=== PATIENT | male | born 1950 | race Caucasian/White ===

== ENCOUNTER 2022-07-10 10:50 | Inpatient (IN) | payer MEDICARE, SELFPAY ==
[2022-07-10 12:10] LABS: #Monocytes 0.3 10x3/uL (0.0-1.1); #Neutrophils 2.4 10x3/uL (1.5-8.4); %Basophils 0.6 % (0.0-2.0); %Eosinophils 0.6 % (0.0-6.0); %Lymphocytes 12.3 % (18.0-47.0); %Monocytes 9.7 % (0.0-10.0); %Neutrophils 76.2 % (40.0-75.0); Hemoglobin 10.4 g/dL (13.5-17.5); Mean Corpuscular HGB CONC 33.8 g/dL (32.0-36.0); Mean Corpuscular Hemoglobin 30.1 pg (27.0-33.0); Mean Platelet Volume 8.8 fl (7.4-10.4); Platelet Count 195 10x3/uL (150-450); RBC Distribution Width 17.2 % (11.5-14.5); Red Blood Cell (RBC) Count 3.46 10x6/uL (4.32-5.72); White Blood Cell (WBC) Count 3.2 10x3/uL (3.5-10.5)
[2022-07-10 12:24] LABS: ALT (SGPT) 25 U/L (8-55); AST (SGOT) 29 U/L (5-34); Albumin 3.8 g/dL (3.4-4.8); Alkaline Phosphatase 136 U/L (40-110); Anion Gap 14 mmol/L (10-20); BUN (Urea Nitrogen) 10 mg/dL (8.4-25.7); Bilirubin, Total 2.5 mg/dL (0.2-1.2); Calc. Creatinine Clearance 0 mL/min (70-130); Calcium 8.4 mg/dL (7.8-10.44); Carbon Dioxide 27 mmol/L (23-31); Chloride 98 mmol/L (98-107); Estimated GFR 99; Globulin 2.5 g/dL (2.4-3.5); Glucose 107 mg/dL (83-110); Potassium 4.7 mmol/L (3.5-5.1); Protein, Total 6.3 g/dL (5.8-8.1); Sodium 134 mmol/L (136-145)
[2022-07-10] MEDS ORDERED: Iopamidol 300 61% 100 ML VIAL FS ONE (12:35)
[2022-07-10] MEDS ORDERED: Cefepime 2 GM VIAL ONE (14:21)
[2022-07-10 15:50] LABS: Cholesterol 124 mg/dl (< 200 Desired); HDL Cholesterol 41 mg/dL (>60 Neg Risk); LDL Cholesterol, Calculated 64 mg/dL; Magnesium 1.9 mg/dL (1.6-2.6); Phosphorus 3.6 mg/dL (2.3-4.7); Triglycerides 97 mg/dL (Less than 150)
[2022-07-10] MEDS ORDERED: Acetaminophen 325 MG TAB PO PRN (18:35)
[2022-07-10 20:08] LABS: Hemoglobin A1c 3.5 % (4.0-6.0)
[2022-07-10] MEDS: HYDROcodone/Acetaminophen 5/325 mg Tablet PO PRN (20:53)
[2022-07-10] MEDS ORDERED: Vancomycin HCl 1 GM in Sodium Chloride 0.9% 250 ML 250 ML IVPB SCH (21:00)
[2022-07-10] MEDS: Famotidine 20 MG TAB PO SCH (21:19)
[2022-07-10] MEDS: Heparin 5,000 UNITS/ML VIAL SC SCH (22:00)
[2022-07-11] MEDS: HYDROcodone/Acetaminophen 5/325 mg Tablet PO PRN ×6 (00:36→22:36)
[2022-07-11] MEDS: Cefepime 2 GM in Sodium Chloride 0.9% 100 ML IVPB SCH ×2 (03:12→14:41)
[2022-07-11] MEDS: Vancomycin 1.5 GRAM/300 ML BAG 1.5 GM in Premix Bag 1 BAG IVPB SCH ×2 (04:48→16:14)
[2022-07-11 06:08] LABS: #Monocytes 0.3 10x3/uL (0.0-1.1); #Neutrophils 1.8 10x3/uL (1.5-8.4); %Basophils 0.4 % (0.0-2.0); %Eosinophils 1.6 % (0.0-6.0); %Lymphocytes 18.4 % (18.0-47.0); %Monocytes 10.2 % (0.0-10.0); Hemoglobin 9.9 g/dL (13.5-17.5); Mean Corpuscular HGB CONC 33.1 g/dL (32.0-36.0); Mean Corpuscular Hemoglobin 30.4 pg (27.0-33.0); Mean Corpuscular Volume 91.7 fl (81.2-95.1); Mean Platelet Volume 8.7 fl (7.4-10.4); Platelet Count 200 10x3/uL (150-450); RBC Distribution Width 17.2 % (11.5-14.5); Red Blood Cell (RBC) Count 3.26 10x6/uL (4.32-5.72); White Blood Cell (WBC) Count 2.6 10x3/uL (3.5-10.5)
[2022-07-11 06:26] LABS: ALT (SGPT) 20 U/L (8-55); AST (SGOT) 27 U/L (5-34); Albumin 3.3 g/dL (3.4-4.8); Alkaline Phosphatase 122 U/L (40-110); Anion Gap 14 mmol/L (10-20); BUN (Urea Nitrogen) 9 mg/dL (8.4-25.7); Calc. Creatinine Clearance 239 mL/min (70-130); Calcium 8.5 mg/dL (7.8-10.44); Carbon Dioxide 26 mmol/L (23-31); Chloride 100 mmol/L (98-107); Estimated GFR 103; Globulin 2.6 g/dL (2.4-3.5); Glucose 114 mg/dL (83-110); Potassium 4.5 mmol/L (3.5-5.1); Protein, Total 5.9 g/dL (5.8-8.1); Sodium 135 mmol/L (136-145)
[2022-07-11] MEDS: Heparin 5,000 UNITS/ML VIAL SC SCH ×3 (09:36→22:38)
[2022-07-11] MEDS: Losartan 25 MG TAB PO SCH (09:37)
[2022-07-11] MEDS: Famotidine 20 MG TAB PO SCH ×2 (09:38→22:35)
[2022-07-11 14:49] VITALS: BMI 45.3
[2022-07-12] MEDS: Cefepime 2 GM in Sodium Chloride 0.9% 100 ML IVPB SCH (03:08)
[2022-07-12 04:04] LABS: #Monocytes 0.3 10x3/uL (0.0-1.1); #Neutrophils 1.8 10x3/uL (1.5-8.4); %Eosinophils 1.3 % (0.0-6.0); %Lymphocytes 26.2 % (18.0-47.0); %Monocytes 10.3 % (0.0-10.0); %Neutrophils 60.9 % (40.0-75.0); Hemoglobin 10.4 g/dL (13.5-17.5); Mean Corpuscular HGB CONC 33.1 g/dL (32.0-36.0); Mean Corpuscular Hemoglobin 30.1 pg (27.0-33.0); Mean Corpuscular Volume 90.8 fl (81.2-95.1); Mean Platelet Volume 8.5 fl (7.4-10.4); Platelet Count 203 10x3/uL (150-450); RBC Distribution Width 17.5 % (11.5-14.5); Red Blood Cell (RBC) Count 3.46 10x6/uL (4.32-5.72)
[2022-07-12 04:17] LABS: Vancomycin, Trough 10.5 ug/mL
[2022-07-12 04:21] LABS: Anion Gap 14 mmol/L (10-20); BUN (Urea Nitrogen) 10 mg/dL (8.4-25.7); Calc. Creatinine Clearance 228 mL/min (70-130); Calcium 8.9 mg/dL (7.8-10.44); Carbon Dioxide 27 mmol/L (23-31); Cardiac Risk 3.9 (Less than 4.5); Chloride 100 mmol/L (98-107); Cholesterol 130 mg/dl (< 200 Desired); Estimated GFR 101; Glucose 108 mg/dL (83-110); HDL Cholesterol 33 mg/dL (>60 Neg Risk); LDL Cholesterol, Calculated 67 mg/dL; Potassium 4.6 mmol/L (3.5-5.1); Sodium 136 mmol/L (136-145); Triglycerides 150 mg/dL (Less than 150)
[2022-07-12 04:22] LABS: ALT (SGPT) 20 U/L (8-55); AST (SGOT) 24 U/L (5-34); Albumin 3.5 g/dL (3.4-4.8); Alkaline Phosphatase 122 U/L (40-110); Bilirubin, Direct 0.8 mg/dL (0.1-0.3); Bilirubin, Total 1.8 mg/dL (0.2-1.2); Protein, Total 6.4 g/dL (5.8-8.1)
[2022-07-12 04:34] LABS: CRP (Inflammatory) 6.76 mg/dL (= or < 0.5)
[2022-07-12] MEDS ORDERED: VANCOMYCIN 1.75 GM/350 ML BAG 1.75 GM in Premix Bag 1 BAG IVPB SCH (05:00)
[2022-07-12] MEDS: Vancomycin 1.5 GRAM/300 ML BAG 1.5 GM in Premix Bag 1 BAG IVPB SCH (05:51)
[2022-07-12] MEDS: HYDROcodone/Acetaminophen 5/325 mg Tablet PO PRN ×4 (06:52→22:14)
[2022-07-12] MEDS: Famotidine 20 MG TAB PO SCH ×2 (08:20→22:14)
[2022-07-12] MEDS: Losartan 25 MG TAB PO SCH (08:20)
[2022-07-12] MEDS: Heparin 5,000 UNITS/ML VIAL SC SCH ×3 (08:20→22:15)
[2022-07-12] MEDS: CEFAZOLIN 2 GM in Sodium Chloride 0.9% 100 ML IVPB SCH (15:00)
[2022-07-13] MEDS: CEFAZOLIN 2 GM in Sodium Chloride 0.9% 100 ML IVPB SCH ×4 (01:05→23:17)
[2022-07-13] MEDS: HYDROcodone/Acetaminophen 5/325 mg Tablet PO PRN ×5 (02:06→23:18)
[2022-07-13 04:51] LABS: #Monocytes 0.3 10x3/uL (0.0-1.1); %Basophils 0.9 % (0.0-2.0); %Eosinophils 1.2 % (0.0-6.0); %Lymphocytes 26.6 % (18.0-47.0); %Monocytes 10.2 % (0.0-10.0); %Neutrophils 60.8 % (40.0-75.0); Anion Gap 15 mmol/L (10-20); BUN (Urea Nitrogen) 8 mg/dL (8.4-25.7); Calc. Creatinine Clearance 239 mL/min (70-130); Calcium 8.7 mg/dL (7.8-10.44); Carbon Dioxide 26 mmol/L (23-31); Chloride 99 mmol/L (98-107); Estimated GFR 103; Glucose 93 mg/dL (83-110); Hemoglobin 10.6 g/dL (13.5-17.5); Mean Corpuscular HGB CONC 33.4 g/dL (32.0-36.0); Mean Corpuscular Hemoglobin 30.1 pg (27.0-33.0); Mean Corpuscular Volume 90.1 fl (81.2-95.1); Mean Platelet Volume 8.9 fl (7.4-10.4); Platelet Count 208 10x3/uL (150-450); RBC Distribution Width 17.4 % (11.5-14.5); Red Blood Cell (RBC) Count 3.52 10x6/uL (4.32-5.72); Sodium 136 mmol/L (136-145); White Blood Cell (WBC) Count 3.2 10x3/uL (3.5-10.5)
[2022-07-13] MEDS: Heparin 5,000 UNITS/ML VIAL SC SCH ×3 (09:35→20:42)
[2022-07-13] MEDS: Losartan 25 MG TAB PO SCH (09:36)
[2022-07-13] MEDS: Famotidine 20 MG TAB PO SCH ×2 (09:36→20:41)
[2022-07-14 04:16] LABS: #Eosinphils 0.1 10x3/uL (0.0-0.5); #Monocytes 0.2 10x3/uL (0.0-1.1); #Neutrophils 1.4 10x3/uL (1.5-8.4); %Basophils 0.8 % (0.0-2.0); %Eosinophils 2.8 % (0.0-6.0); %Lymphocytes 32.8 % (18.0-47.0); %Monocytes 9.5 % (0.0-10.0); %Neutrophils 53.3 % (40.0-75.0); Hemoglobin 10.1 g/dL (13.5-17.5); Mean Corpuscular HGB CONC 33.7 g/dL (32.0-36.0); Mean Corpuscular Hemoglobin 30.2 pg (27.0-33.0); Mean Corpuscular Volume 89.8 fl (81.2-95.1); Mean Platelet Volume 8.8 fl (7.4-10.4); Platelet Count 215 10x3/uL (150-450); RBC Distribution Width 17.1 % (11.5-14.5); Red Blood Cell (RBC) Count 3.34 10x6/uL (4.32-5.72); White Blood Cell (WBC) Count 2.5 10x3/uL (3.5-10.5)
[2022-07-14 04:24] LABS: Anion Gap 12 mmol/L (10-20); BUN (Urea Nitrogen) 10 mg/dL (8.4-25.7); Calc. Creatinine Clearance 243 mL/min (70-130); Calcium 8.6 mg/dL (7.8-10.44); Carbon Dioxide 28 mmol/L (23-31); Chloride 99 mmol/L (98-107); Estimated GFR 103; Glucose 103 mg/dL (83-110); Potassium 3.8 mmol/L (3.5-5.1); Sodium 135 mmol/L (136-145)
[2022-07-14] MEDS: HYDROcodone/Acetaminophen 5/325 mg Tablet PO PRN ×2 (09:58→13:47)
[2022-07-14] MEDS: Losartan 25 MG TAB PO SCH (09:59)
[2022-07-14] MEDS: Heparin 5,000 UNITS/ML VIAL SC SCH ×2 (10:00→15:00)
[2022-07-14] MEDS: Famotidine 20 MG TAB PO SCH (10:01)
[2022-07-14] MEDS: CEFAZOLIN 2 GM in Sodium Chloride 0.9% 100 ML IVPB SCH ×2 (10:02→10:03)
[2022-07-14] MEDS: Carvedilol 6.25 MG TAB PO SCH (17:03)
[2022-07-15] MEDS: CEFAZOLIN 2 GM in Sodium Chloride 0.9% 100 ML IVPB SCH ×4 (01:57→23:40)
[2022-07-15] MEDS: Heparin 5,000 UNITS/ML VIAL SC SCH ×4 (01:57→21:22)
[2022-07-15] MEDS: Famotidine 20 MG TAB PO SCH ×3 (01:58→21:22)
[2022-07-15] MEDS: HYDROcodone/Acetaminophen 5/325 mg Tablet PO PRN ×2 (02:16→21:21)
[2022-07-15 04:27] LABS: #Eosinphils 0.1 10x3/uL (0.0-0.5); #Monocytes 0.3 10x3/uL (0.0-1.1); %Basophils 0.6 % (0.0-2.0); %Eosinophils 2.8 % (0.0-6.0); %Lymphocytes 23.8 % (18.0-47.0); %Monocytes 9.1 % (0.0-10.0); %Neutrophils 63.4 % (40.0-75.0); Hemoglobin 10.6 g/dL (13.5-17.5); Mean Corpuscular HGB CONC 32.9 g/dL (32.0-36.0); Mean Corpuscular Hemoglobin 29.8 pg (27.0-33.0); Mean Corpuscular Volume 90.4 fl (81.2-95.1); Mean Platelet Volume 8.8 fl (7.4-10.4); Platelet Count 237 10x3/uL (150-450); RBC Distribution Width 17.2 % (11.5-14.5); Red Blood Cell (RBC) Count 3.56 10x6/uL (4.32-5.72); White Blood Cell (WBC) Count 3.2 10x3/uL (3.5-10.5)
[2022-07-15 04:40] LABS: Anion Gap 13 mmol/L (10-20); BUN (Urea Nitrogen) 10 mg/dL (8.4-25.7); Calc. Creatinine Clearance 243 mL/min (70-130); Calcium 8.9 mg/dL (7.8-10.44); Carbon Dioxide 28 mmol/L (23-31); Chloride 98 mmol/L (98-107); Estimated GFR 103; Glucose 108 mg/dL (83-110); Sodium 135 mmol/L (136-145)
[2022-07-15] MEDS: Carvedilol 6.25 MG TAB PO SCH ×2 (08:03→16:32)
[2022-07-16 04:07] LABS: #Eosinphils 0.1 10x3/uL (0.0-0.5); #Monocytes 0.3 10x3/uL (0.0-1.1); #Neutrophils 1.5 10x3/uL (1.5-8.4); %Basophils 1.1 % (0.0-2.0); %Eosinophils 2.8 % (0.0-6.0); %Lymphocytes 31.6 % (18.0-47.0); %Monocytes 10.6 % (0.0-10.0); %Neutrophils 53.2 % (40.0-75.0); Hemoglobin 10.4 g/dL (13.5-17.5); Mean Corpuscular HGB CONC 32.9 g/dL (32.0-36.0); Mean Corpuscular Hemoglobin 29.7 pg (27.0-33.0); Mean Corpuscular Volume 90.3 fl (81.2-95.1); Mean Platelet Volume 8.9 fl (7.4-10.4); Platelet Count 209 10x3/uL (150-450); RBC Distribution Width 17.4 % (11.5-14.5); White Blood Cell (WBC) Count 2.8 10x3/uL (3.5-10.5)
[2022-07-16 04:20] LABS: Anion Gap 12 mmol/L (10-20); BUN (Urea Nitrogen) 9 mg/dL (8.4-25.7); Calc. Creatinine Clearance 235 mL/min (70-130); Carbon Dioxide 31 mmol/L (23-31); Chloride 98 mmol/L (98-107); Estimated GFR 102; Glucose 107 mg/dL (83-110); Potassium 4.2 mmol/L (3.5-5.1); Sodium 137 mmol/L (136-145)
[2022-07-16] MEDS: Carvedilol 6.25 MG TAB PO SCH (08:25)
[2022-07-16] MEDS: CEFAZOLIN 2 GM in Sodium Chloride 0.9% 100 ML IVPB SCH (08:25)
[2022-07-16] MEDS: Famotidine 20 MG TAB PO SCH (08:25)
[2022-07-16] MEDS: Heparin 5,000 UNITS/ML VIAL SC SCH (08:25)
[2022-07-16] MEDS: HYDROcodone/Acetaminophen 5/325 mg Tablet PO PRN ×2 (08:26→13:20)
[2022-07-16 11:47] VITALS: BP 136/72; TEMP 98
== END 2022-07-16 13:28 | DRG 603 ==
LOC: SUATTDRO 10:50 → CSHERS 10:50 → CSHTELE 18:29
PROVIDERS: ADMIT Internal Medicine; ATTEND Hospitalist
DX: L03.116 Cellulitis of left lower limb (principal); Z68.42 Body mass index [BMI] 45.0-49.9, adult; I10 Essential (primary) hypertension; R58 Hemorrhage, not elsewhere classified; A49.01 Methicillin susceptible Staphylococcus aureus infection, unspecified site; E66.01 Morbid (severe) obesity due to excess calories; S80.02XA Contusion of left knee, initial encounter; W19.XXXA Unspecified fall, initial encounter; Z20.822 Contact with and (suspected) exposure to COVID-19; Y92.009 Unspecified place in unspecified non-institutional (private) residence as the place of occurrence of the external cause; Z87.891 Personal history of nicotine dependence; Z90.49 Acquired absence of other specified parts of digestive tract
CPT/HCPCS: 36415; 71045; 80048; 80053; 80061; 80076; 80202; 83036; 83605; 83735; 84100; 84443; 85025; 85652; 86140; 87040; 87070; 87077; 87186; 87205; 93306; 96365; 96366; 96367; 97139; J0690; J0692; J1644; J3370; J3490; Q9967; U0003; U0005

== ENCOUNTER 2023-05-20 10:42 | Inpatient (IN) | payer MEDICARE ==
[2023-05-20] MEDS ORDERED: Fluorescein Opthalmic Strip ONE (11:34)
[2023-05-20 11:45] LABS: #Monocytes 0.7 10x3/uL (0.0-1.1); #Neutrophils 4.4 10x3/uL (1.5-8.4); %Basophils 0.4 % (0.0-2.0); %Eosinophils 0.2 % (0.0-6.0); %Lymphocytes 5.2 % (18.0-47.0); %Monocytes 12.2 % (0.0-10.0); %Neutrophils 81.6 % (40.0-75.0); Hematocrit 34.8 % (38.8-50.0); Hemoglobin 12.3 g/dL (13.5-17.5); Mean Corpuscular HGB CONC 35.3 g/dL (32.0-36.0); Mean Corpuscular Hemoglobin 29.8 pg (27.0-33.0); Mean Corpuscular Volume 84.3 fl (81.2-95.1); Mean Platelet Volume 9.4 fl (7.4-10.4); Platelet Count 232 10x3/uL (150-450); RBC Distribution Width 17.2 % (11.5-14.5); Red Blood Cell (RBC) Count 4.13 10x6/uL (4.32-5.72); White Blood Cell (WBC) Count 5.4 10x3/uL (3.5-10.5)
[2023-05-20] MEDS ORDERED: cefTRIAXone (ROCEPHIN) 2 GM VIAL ONE (11:49)
[2023-05-20 11:55] LABS: ALT (SGPT) 16 U/L (8-55); AST (SGOT) 27 U/L (5-34); Albumin 3.9 g/dL (3.4-4.8); Alkaline Phosphatase 146 U/L (40-110); Anion Gap 17 mmol/L (10-20); BUN (Urea Nitrogen) 38 mg/dL (8.4-25.7); Bilirubin, Total 1.5 mg/dL (0.2-1.2); CK (CPK) 60 U/L (30-200); Calc. Creatinine Clearance 0 mL/min (70-130); Calcium 9.1 mg/dL (7.8-10.44); Carbon Dioxide 20 mmol/L (23-31); Chloride 94 mmol/L (98-107); Estimated GFR 51; Globulin 2.8 g/dL (2.4-3.5); Glucose 145 mg/dL (83-110); Lipase 55 U/L (8-78); Potassium 4.8 mmol/L (3.5-5.1); Protein, Total 6.7 g/dL (5.8-8.1); Sodium 126 mmol/L (136-145)
[2023-05-20] MEDS ORDERED: Ondansetron ODT 4 MG TAB PO PRN (16:51)
[2023-05-20] MEDS ORDERED: Acetaminophen 325 MG TAB PO PRN (16:51)
[2023-05-20] MEDS ORDERED: Ondansetron PF 4 MG/2 ML Vial IVP PRN (16:51)
[2023-05-20] MEDS ORDERED: Senokot S 8.6-50 MG TAB PO PRN (16:51)
[2023-05-20] MEDS ORDERED: Calcium Carbonate 500 MG ChewTAB PO PRN (16:51)
[2023-05-20] MEDS ORDERED: Vancomycin 1 GM in Premix Bag 1 BAG IVPB SCH (17:00)
[2023-05-20] MEDS ORDERED: cefTRIAXone\\ROCEPHIN 2 GM in Sodium Chloride 0.9% 100 ML IVPB SCH (17:00)
[2023-05-20] MEDS ORDERED: Ketorolac Tromethamine 30 MG/ML VIAL ONE (17:10)
[2023-05-20] MEDS ORDERED: Sodium Chloride 0.9% 1,000 ML IV SCH (18:30)
[2023-05-20] MEDS ORDERED: Folic Acid 1 MG TAB PO SCH (23:00)
[2023-05-20] MEDS ORDERED: Cyanocobalamin (Vitamin B-12) 1,000 MCG TAB PO SCH (23:00)
[2023-05-20] MEDS ORDERED: Multivit, Therapeutic 1 TAB PO SCH (23:00)
[2023-05-20] MEDS ORDERED: metroNIDAZOLE 500 MG TAB PO SCH (23:00)
[2023-05-20] MEDS ORDERED: Thiamine 100 MG TAB PO SCH (23:00)
[2023-05-20] MEDS ORDERED: Famotidine 20 MG TAB PO SCH (23:45)
[2023-05-20] MEDS ORDERED: VANCOMYCIN 2 GRAM/400 ML BAG 2 GM in Premix Bag 1 BAG IVPB SCH (23:59)
[2023-05-21] MEDS: HYDROcodone/Acetaminophen 5/325 mg Tablet PO PRN ×5 (01:43→23:35)
[2023-05-21] MEDS: Cefepime 2 GM in Sodium Chloride 0.9% 100 ML IVPB SCH ×3 (01:46→23:08)
[2023-05-21] MEDS: Morphine 2 MG/ML VIAL SLOW IVP PRN ×5 (01:47→23:34)
[2023-05-21 02:16] VITALS: BMI 40.6
[2023-05-21] MEDS ORDERED: Morphine 2 MG/ML VIAL SLOW IVP SCH (03:30)
[2023-05-21 05:10] LABS: #Monocytes 0.6 10x3/uL (0.0-1.1); #Neutrophils 4.4 10x3/uL (1.5-8.4); %Basophils 0.2 % (0.0-2.0); %Eosinophils 0.2 % (0.0-6.0); %Lymphocytes 5.9 % (18.0-47.0); %Monocytes 10.8 % (0.0-10.0); %Neutrophils 82.9 % (40.0-75.0); Hematocrit 31.4 % (38.8-50.0); Hemoglobin 10.7 g/dL (13.5-17.5); Mean Corpuscular HGB CONC 34.1 g/dL (32.0-36.0); Mean Corpuscular Hemoglobin 29.6 pg (27.0-33.0); Mean Platelet Volume 9.1 fl (7.4-10.4); Platelet Count 195 10x3/uL (150-450); RBC Distribution Width 17.1 % (11.5-14.5); Red Blood Cell (RBC) Count 3.61 10x6/uL (4.32-5.72); White Blood Cell (WBC) Count 5.3 10x3/uL (3.5-10.5)
[2023-05-21 05:24] LABS: ALT (SGPT) 15 U/L (8-55); AST (SGOT) 25 U/L (5-34); Albumin 3.3 g/dL (3.4-4.8); Alkaline Phosphatase 114 U/L (40-110); Anion Gap 16 mmol/L (10-20); BUN (Urea Nitrogen) 33 mg/dL (8.4-25.7); Bilirubin, Total 1.4 mg/dL (0.2-1.2); CRP (Inflammatory) 8.68 mg/dL (= or < 0.5); Calc. Creatinine Clearance 147 mL/min (70-130); Calcium 8.6 mg/dL (7.8-10.44); Carbon Dioxide 21 mmol/L (23-31); Chloride 98 mmol/L (98-107); Estimated GFR 91; Globulin 2.5 g/dL (2.4-3.5); Glucose 116 mg/dL (83-110); Potassium 4.7 mmol/L (3.5-5.1); Protein, Total 5.8 g/dL (5.8-8.1); Sodium 130 mmol/L (136-145)
[2023-05-21] MEDS: Famotidine 20 MG TAB PO SCH ×2 (09:48→20:47)
[2023-05-21] MEDS: metroNIDAZOLE 500 MG TAB PO SCH ×3 (12:00→20:47)
[2023-05-21] MEDS ORDERED: Lorazepam 0.5 MG TAB PO PRN (12:59)
[2023-05-21] MEDS: Saccharomyces boulardii 250 MG CAP PO SCH (14:19)
[2023-05-21] MEDS: Thiamine 100 MG TAB PO SCH (20:47)
[2023-05-21] MEDS: Folic Acid 1 MG TAB PO SCH (20:47)
[2023-05-21] MEDS: Multivit, Therapeutic 1 TAB PO SCH (20:48)
[2023-05-21] MEDS: Cyanocobalamin (Vitamin B-12) 1,000 MCG TAB PO SCH (20:48)
[2023-05-21] MEDS ORDERED: Vancomycin 1.5 GRAM/300 ML BAG 1.5 GM in Premix Bag 1 BAG IVPB SCH (23:59)
[2023-05-22 05:29] LABS: Hematocrit 32.6 % (38.8-50.0); Hemoglobin 10.8 g/dL (13.5-17.5); Mean Corpuscular HGB CONC 33.1 g/dL (32.0-36.0); Mean Corpuscular Hemoglobin 29.3 pg (27.0-33.0); Mean Corpuscular Volume 88.6 fl (81.2-95.1); Mean Platelet Volume 9.1 fl (7.4-10.4); Platelet Count 237 10x3/uL (150-450); RBC Distribution Width 17.4 % (11.5-14.5); Red Blood Cell (RBC) Count 3.68 10x6/uL (4.32-5.72); White Blood Cell (WBC) Count 6.6 10x3/uL (3.5-10.5)
[2023-05-22 05:44] LABS: Anion Gap 20 mmol/L (10-20); BUN (Urea Nitrogen) 42 mg/dL (8.4-25.7); Calc. Creatinine Clearance 109 mL/min (70-130); Calcium 8.7 mg/dL (7.8-10.44); Carbon Dioxide 16 mmol/L (23-31); Chloride 99 mmol/L (98-107); Estimated GFR 67; Glucose 114 mg/dL (83-110); Potassium 4.1 mmol/L (3.5-5.1); Sodium 131 mmol/L (136-145)
[2023-05-22] MEDS: metroNIDAZOLE 500 MG TAB PO SCH ×3 (08:49→21:30)
[2023-05-22] MEDS: Famotidine 20 MG TAB PO SCH ×2 (08:49→21:15)
[2023-05-22] MEDS: HYDROcodone/Acetaminophen 5/325 mg Tablet PO PRN ×3 (08:51→21:15)
[2023-05-22] MEDS: Cefepime 2 GM in Sodium Chloride 0.9% 100 ML IVPB SCH ×2 (11:45→23:02)
[2023-05-22] MEDS: Saccharomyces boulardii 250 MG CAP PO SCH (15:23)
[2023-05-22] MEDS: Morphine 2 MG/ML VIAL SLOW IVP PRN ×2 (15:26→21:17)
[2023-05-22] MEDS: Cyanocobalamin (Vitamin B-12) 1,000 MCG TAB PO SCH (21:14)
[2023-05-22] MEDS: Folic Acid 1 MG TAB PO SCH (21:14)
[2023-05-22] MEDS: Multivit, Therapeutic 1 TAB PO SCH (21:14)
[2023-05-22] MEDS: Thiamine 100 MG TAB PO SCH (21:15)
[2023-05-22 23:23] LABS: Vancomycin, Trough 9.7 ug/mL
[2023-05-23] MEDS: VANCOMYCIN 2 GRAM/400 ML BAG 2 GM in Premix Bag 1 BAG IVPB SCH (00:03)
[2023-05-23] MEDS: Morphine 2 MG/ML VIAL SLOW IVP PRN ×6 (02:29→21:51)
[2023-05-23] MEDS: HYDROcodone/Acetaminophen 5/325 mg Tablet PO PRN ×5 (02:29→21:02)
[2023-05-23] MEDS: metroNIDAZOLE 500 MG TAB PO SCH ×3 (08:44→21:02)
[2023-05-23] MEDS: Famotidine 20 MG TAB PO SCH ×2 (08:44→20:50)
[2023-05-23] MEDS ORDERED: Polyethylene Glycol 3350 17 GM Packet PO PRN (08:48)
[2023-05-23] MEDS ORDERED: Docusate 100 MG CAP PO PRN (08:48)
[2023-05-23] MEDS: Cefepime 2 GM in Sodium Chloride 0.9% 100 ML IVPB SCH ×2 (12:46→23:38)
[2023-05-23] MEDS: Saccharomyces boulardii 250 MG CAP PO SCH (16:57)
[2023-05-23] MEDS: Thiamine 100 MG TAB PO SCH (20:50)
[2023-05-23] MEDS: Multivit, Therapeutic 1 TAB PO SCH (20:50)
[2023-05-23] MEDS: Cyanocobalamin (Vitamin B-12) 1,000 MCG TAB PO SCH (20:50)
[2023-05-23] MEDS: Folic Acid 1 MG TAB PO SCH (20:50)
[2023-05-24] MEDS: VANCOMYCIN 2 GRAM/400 ML BAG 2 GM in Premix Bag 1 BAG IVPB SCH (00:53)
[2023-05-24] MEDS: HYDROcodone/Acetaminophen 5/325 mg Tablet PO PRN ×5 (01:03→22:30)
[2023-05-24] MEDS: Morphine 2 MG/ML VIAL SLOW IVP PRN ×5 (02:26→22:29)
[2023-05-24] MEDS: Famotidine 20 MG TAB PO SCH ×2 (09:38→21:37)
[2023-05-24] MEDS: metroNIDAZOLE 500 MG TAB PO SCH ×3 (09:38→21:37)
[2023-05-24] MEDS: Cefepime 2 GM in Sodium Chloride 0.9% 100 ML IVPB SCH (11:45)
[2023-05-24] MEDS: Saccharomyces boulardii 250 MG CAP PO SCH (15:35)
[2023-05-24] MEDS ORDERED: Morphine 4 MG/ML VIAL ONE (18:09)
[2023-05-24] MEDS ORDERED: Morphine 2 MG/ML VIAL SLOW IVP SCH (18:30)
[2023-05-24] MEDS: Multivit, Therapeutic 1 TAB PO SCH (21:37)
[2023-05-24] MEDS: Thiamine 100 MG TAB PO SCH (21:37)
[2023-05-24] MEDS: Cyanocobalamin (Vitamin B-12) 1,000 MCG TAB PO SCH (21:37)
[2023-05-24] MEDS: Folic Acid 1 MG TAB PO SCH (21:37)
[2023-05-24 23:25] LABS: Vancomycin, Trough 8.9 ug/mL
[2023-05-25] MEDS: Cefepime 2 GM in Sodium Chloride 0.9% 100 ML IVPB SCH ×3 (00:03→23:27)
[2023-05-25] MEDS: VANCOMYCIN 1.25 GM/250 ML BAG 1.25 GM in Premix Bag 1 BAG IVPB SCH ×2 (01:08→12:48)
[2023-05-25] MEDS: Morphine 2 MG/ML VIAL SLOW IVP PRN ×4 (02:03→18:55)
[2023-05-25] MEDS: HYDROcodone/Acetaminophen 5/325 mg Tablet PO PRN ×5 (02:04→23:30)
[2023-05-25 05:23] LABS: Hematocrit 31.4 % (38.8-50.0); Hemoglobin 10.1 g/dL (13.5-17.5); Mean Corpuscular HGB CONC 32.2 g/dL (32.0-36.0); Mean Corpuscular Hemoglobin 28.9 pg (27.0-33.0); Mean Platelet Volume 8.6 fl (7.4-10.4); Platelet Count 234 10x3/uL (150-450); RBC Distribution Width 17.1 % (11.5-14.5); Red Blood Cell (RBC) Count 3.49 10x6/uL (4.32-5.72); White Blood Cell (WBC) Count 3.1 10x3/uL (3.5-10.5)
[2023-05-25 05:35] LABS: Anion Gap 14 mmol/L (10-20); BUN (Urea Nitrogen) 20 mg/dL (8.4-25.7); Calc. Creatinine Clearance 178 mL/min (70-130); Calcium 8.6 mg/dL (7.8-10.44); Carbon Dioxide 22 mmol/L (23-31); Chloride 105 mmol/L (98-107); Estimated GFR 97; Glucose 105 mg/dL (83-110); Magnesium 1.8 mg/dL (1.6-2.6); Potassium 4.5 mmol/L (3.5-5.1); Sodium 136 mmol/L (136-145)
[2023-05-25] MEDS: metroNIDAZOLE 500 MG TAB PO SCH ×3 (10:06→21:21)
[2023-05-25] MEDS: Famotidine 20 MG TAB PO SCH ×2 (10:07→21:21)
[2023-05-25] MEDS: Saccharomyces boulardii 250 MG CAP PO SCH (12:51)
[2023-05-25] MEDS: Morphine 4 MG/ML VIAL SLOW IVP PRN (13:55)
[2023-05-25] MEDS: Thiamine 100 MG TAB PO SCH (21:21)
[2023-05-25] MEDS: Folic Acid 1 MG TAB PO SCH (21:21)
[2023-05-25] MEDS: Multivit, Therapeutic 1 TAB PO SCH (21:21)
[2023-05-25] MEDS: Cyanocobalamin (Vitamin B-12) 1,000 MCG TAB PO SCH (21:21)
[2023-05-26] MEDS: VANCOMYCIN 1.25 GM/250 ML BAG 1.25 GM in Premix Bag 1 BAG IVPB SCH ×2 (00:26→11:16)
[2023-05-26] MEDS: Morphine 2 MG/ML VIAL SLOW IVP PRN ×3 (04:11→20:08)
[2023-05-26] MEDS: metroNIDAZOLE 500 MG TAB PO SCH ×3 (09:16→20:08)
[2023-05-26] MEDS: HYDROcodone/Acetaminophen 5/325 mg Tablet PO PRN ×2 (09:24→17:16)
[2023-05-26] MEDS: Famotidine 20 MG TAB PO SCH ×2 (09:25→20:08)
[2023-05-26] MEDS ORDERED: Morphine 4 MG/ML VIAL SLOW IVP PRN (10:12)
[2023-05-26] MEDS: Cefepime 2 GM in Sodium Chloride 0.9% 100 ML IVPB SCH ×2 (11:16→23:41)
[2023-05-26 11:35] LABS: Vancomycin, Trough 12.3 ug/mL
[2023-05-26] MEDS: Saccharomyces boulardii 250 MG CAP PO SCH (14:13)
[2023-05-26] MEDS: Cyanocobalamin (Vitamin B-12) 1,000 MCG TAB PO SCH (20:08)
[2023-05-26] MEDS: Multivit, Therapeutic 1 TAB PO SCH (20:08)
[2023-05-26] MEDS: Folic Acid 1 MG TAB PO SCH (20:08)
[2023-05-26] MEDS: Thiamine 100 MG TAB PO SCH (20:08)
[2023-05-27] MEDS: Morphine 4 MG/ML VIAL SLOW IVP PRN ×3 (00:07→21:05)
[2023-05-27] MEDS: VANCOMYCIN 1.25 GM/250 ML BAG 1.25 GM in Premix Bag 1 BAG IVPB SCH ×2 (00:08→13:09)
[2023-05-27 09:19] LABS: #Basophils 0.1 10x3/uL (0.0-0.2); #Monocytes 0.5 10x3/uL (0.0-1.1); #Neutrophils 4.3 10x3/uL (1.5-8.4); %Basophils 0.9 % (0.0-2.0); %Eosinophils 0.7 % (0.0-6.0); %Monocytes 8.3 % (0.0-10.0); %Neutrophils 80.2 % (40.0-75.0); Hematocrit 35.5 % (38.8-50.0); Hemoglobin 11.4 g/dL (13.5-17.5); Mean Corpuscular HGB CONC 32.1 g/dL (32.0-36.0); Mean Corpuscular Volume 90.3 fl (81.2-95.1); Mean Platelet Volume 8.6 fl (7.4-10.4); Platelet Count 228 10x3/uL (150-450); RBC Distribution Width 17.1 % (11.5-14.5); Red Blood Cell (RBC) Count 3.93 10x6/uL (4.32-5.72); White Blood Cell (WBC) Count 5.4 10x3/uL (3.5-10.5)
[2023-05-27 09:24] LABS: ALT (SGPT) 17 U/L (8-55); AST (SGOT) 28 U/L (5-34); Albumin 3.3 g/dL (3.4-4.8); Alkaline Phosphatase 134 U/L (40-110); Anion Gap 12 mmol/L (10-20); BUN (Urea Nitrogen) 12 mg/dL (8.4-25.7); BUN/Creatinine Ratio 17.91; Bilirubin, Direct 0.4 mg/dL (0.1-0.3); Bilirubin, Total 0.7 mg/dL (0.2-1.2); Calc. Creatinine Clearance 189 mL/min (70-130); Calcium 8.4 mg/dL (7.8-10.44); Carbon Dioxide 26 mmol/L (23-31); Chloride 103 mmol/L (98-107); Estimated GFR 99; Glucose 123 mg/dL (83-110); Phosphorus 2.7 mg/dL (2.3-4.7); Potassium 3.9 mmol/L (3.5-5.1); Protein, Total 5.8 g/dL (5.8-8.1); Sodium 137 mmol/L (136-145)
[2023-05-27] MEDS: Morphine 2 MG/ML VIAL SLOW IVP PRN (09:40)
[2023-05-27] MEDS: Famotidine 20 MG TAB PO SCH ×2 (09:42→20:30)
[2023-05-27] MEDS: metroNIDAZOLE 500 MG TAB PO SCH ×3 (09:42→20:30)
[2023-05-27] MEDS ORDERED: Morphine 4 MG/ML VIAL SLOW IVP PRN (11:54)
[2023-05-27] MEDS ORDERED: Vancomycin 1.5 GRAM/300 ML BAG 1.5 GM in Premix Bag 1 BAG IVPB SCH (12:00)
[2023-05-27] MEDS ORDERED: Lidocaine 2% 6 ML (Jelly) SYR TOP SCH (13:00)
[2023-05-27] MEDS: Cefepime 2 GM in Sodium Chloride 0.9% 100 ML IVPB SCH (13:09)
[2023-05-27] MEDS: Saccharomyces boulardii 250 MG CAP PO SCH (16:37)
[2023-05-27] MEDS ORDERED: Gabapentin 300 MG CAP PO SCH (18:00)
[2023-05-27] MEDS: Thiamine 100 MG TAB PO SCH (20:30)
[2023-05-27] MEDS: Folic Acid 1 MG TAB PO SCH (20:30)
[2023-05-27] MEDS: Multivit, Therapeutic 1 TAB PO SCH (20:30)
[2023-05-27] MEDS: Cyanocobalamin (Vitamin B-12) 1,000 MCG TAB PO SCH (20:30)
[2023-05-28 00:42] LABS: Vancomycin, Trough 12.9 ug/mL
[2023-05-28] MEDS: Cefepime 2 GM in Sodium Chloride 0.9% 100 ML IVPB SCH ×3 (01:26→23:04)
[2023-05-28] MEDS: VANCOMYCIN 1.25 GM/250 ML BAG 1.25 GM in Premix Bag 1 BAG IVPB SCH ×3 (01:26→15:44)
[2023-05-28] MEDS: Morphine 4 MG/ML VIAL SLOW IVP PRN ×2 (02:33→09:37)
[2023-05-28 03:09] LABS: #Eosinphils 0.1 10x3/uL (0.0-0.5); #Monocytes 0.4 10x3/uL (0.0-1.1); #Neutrophils 3.4 10x3/uL (1.5-8.4); %Basophils 0.6 % (0.0-2.0); %Eosinophils 1.9 % (0.0-6.0); %Lymphocytes 15.8 % (18.0-47.0); %Monocytes 8.8 % (0.0-10.0); Hematocrit 33.6 % (38.8-50.0); Hemoglobin 10.8 g/dL (13.5-17.5); Mean Corpuscular HGB CONC 32.1 g/dL (32.0-36.0); Mean Corpuscular Volume 90.3 fl (81.2-95.1); Mean Platelet Volume 8.9 fl (7.4-10.4); Platelet Count 220 10x3/uL (150-450); RBC Distribution Width 16.9 % (11.5-14.5); Red Blood Cell (RBC) Count 3.72 10x6/uL (4.32-5.72); White Blood Cell (WBC) Count 4.7 10x3/uL (3.5-10.5)
[2023-05-28 03:45] LABS: Anion Gap 13 mmol/L (10-20); BUN (Urea Nitrogen) 11 mg/dL (8.4-25.7); Calc. Creatinine Clearance 195 mL/min (70-130); Calcium 8.2 mg/dL (7.8-10.44); Carbon Dioxide 26 mmol/L (23-31); Chloride 101 mmol/L (98-107); Estimated GFR 99; Glucose 95 mg/dL (83-110); Potassium 4.2 mmol/L (3.5-5.1); Sodium 136 mmol/L (136-145)
[2023-05-28] MEDS ORDERED: Gabapentin 300 MG CAP PO SCH ×2 (09:00)
[2023-05-28] MEDS: Famotidine 20 MG TAB PO SCH ×2 (09:32→23:03)
[2023-05-28] MEDS: metroNIDAZOLE 500 MG TAB PO SCH (09:32)
[2023-05-28] MEDS: Gabapentin 300 MG CAP PO SCH ×3 (09:35→23:06)
[2023-05-28] MEDS ORDERED: Lidocaine 2% 6 ML (Jelly) SYR TOP PRN (10:26)
[2023-05-28] MEDS ORDERED: Morphine 2 MG/ML VIAL SLOW IVP SCH (11:45)
[2023-05-28] MEDS ORDERED: Morphine 4 MG/ML VIAL SLOW IVP PRN (13:20)
[2023-05-28] MEDS: Saccharomyces boulardii 250 MG CAP PO SCH (15:30)
[2023-05-28] MEDS: HYDROcodone/Acetaminophen 10/325 mg Tablet PO PRN (23:03)
[2023-05-28] MEDS: Cyanocobalamin (Vitamin B-12) 1,000 MCG TAB PO SCH (23:06)
[2023-05-28] MEDS: Thiamine 100 MG TAB PO SCH (23:06)
[2023-05-28] MEDS: Multivit, Therapeutic 1 TAB PO SCH (23:06)
[2023-05-28] MEDS: Folic Acid 1 MG TAB PO SCH (23:06)
[2023-05-29] MEDS: VANCOMYCIN 1.25 GM/250 ML BAG 1.25 GM in Premix Bag 1 BAG IVPB SCH ×2 (00:49→14:17)
[2023-05-29 03:28] LABS: #Eosinphils 0.1 10x3/uL (0.0-0.5); #Monocytes 0.5 10x3/uL (0.0-1.1); #Neutrophils 3.7 10x3/uL (1.5-8.4); %Basophils 0.6 % (0.0-2.0); %Eosinophils 2.1 % (0.0-6.0); %Lymphocytes 17.1 % (18.0-47.0); %Monocytes 8.8 % (0.0-10.0); Hematocrit 31.4 % (38.8-50.0); Mean Corpuscular HGB CONC 31.8 g/dL (32.0-36.0); Mean Corpuscular Hemoglobin 28.7 pg (27.0-33.0); Platelet Count 207 10x3/uL (150-450); RBC Distribution Width 17.2 % (11.5-14.5); Red Blood Cell (RBC) Count 3.49 10x6/uL (4.32-5.72); White Blood Cell (WBC) Count 5.2 10x3/uL (3.5-10.5)
[2023-05-29 04:12] LABS: Anion Gap 13 mmol/L (10-20); BUN (Urea Nitrogen) 13 mg/dL (8.4-25.7); Calc. Creatinine Clearance 195 mL/min (70-130); Calcium 7.8 mg/dL (7.8-10.44); Carbon Dioxide 24 mmol/L (23-31); Chloride 103 mmol/L (98-107); Estimated GFR 99; Glucose 102 mg/dL (83-110); Potassium 3.9 mmol/L (3.5-5.1); Sodium 136 mmol/L (136-145)
[2023-05-29] MEDS: Gabapentin 300 MG CAP PO SCH ×3 (08:36→20:50)
[2023-05-29] MEDS: Famotidine 20 MG TAB PO SCH ×2 (08:37→20:50)
[2023-05-29] MEDS: Morphine 4 MG/ML VIAL SLOW IVP PRN (10:21)
[2023-05-29 11:19] LABS: Vancomycin, Trough 14.8 ug/mL
[2023-05-29] MEDS: Cefepime 2 GM in Sodium Chloride 0.9% 100 ML IVPB SCH (13:25)
[2023-05-29] MEDS: Saccharomyces boulardii 250 MG CAP PO SCH (13:30)
[2023-05-29] MEDS: HYDROcodone/Acetaminophen 10/325 mg Tablet PO PRN ×2 (16:20→20:51)
[2023-05-29] MEDS: Cyanocobalamin (Vitamin B-12) 1,000 MCG TAB PO SCH (20:49)
[2023-05-29] MEDS: Thiamine 100 MG TAB PO SCH (20:49)
[2023-05-29] MEDS: Multivit, Therapeutic 1 TAB PO SCH (20:50)
[2023-05-29] MEDS: Folic Acid 1 MG TAB PO SCH (20:51)
[2023-05-30] MEDS: Cefepime 2 GM in Sodium Chloride 0.9% 100 ML IVPB SCH ×3 (00:04→23:22)
[2023-05-30] MEDS: VANCOMYCIN 1.25 GM/250 ML BAG 1.25 GM in Premix Bag 1 BAG IVPB SCH ×2 (00:56→13:13)
[2023-05-30] MEDS: HYDROcodone/Acetaminophen 10/325 mg Tablet PO PRN ×6 (00:56→23:22)
[2023-05-30 03:34] LABS: #Basophils 0.1 10x3/uL (0.0-0.2); #Eosinphils 0.1 10x3/uL (0.0-0.5); #Monocytes 0.4 10x3/uL (0.0-1.1); #Neutrophils 3.7 10x3/uL (1.5-8.4); %Eosinophils 1.6 % (0.0-6.0); %Lymphocytes 17.3 % (18.0-47.0); %Monocytes 8.2 % (0.0-10.0); %Neutrophils 71.3 % (40.0-75.0); Hematocrit 31.9 % (38.8-50.0); Hemoglobin 10.2 g/dL (13.5-17.5); Mean Corpuscular Hemoglobin 28.8 pg (27.0-33.0); Mean Corpuscular Volume 90.1 fl (81.2-95.1); Mean Platelet Volume 8.9 fl (7.4-10.4); Platelet Count 198 10x3/uL (150-450); RBC Distribution Width 17.2 % (11.5-14.5); Red Blood Cell (RBC) Count 3.54 10x6/uL (4.32-5.72); White Blood Cell (WBC) Count 5.1 10x3/uL (3.5-10.5)
[2023-05-30 03:58] LABS: Anion Gap 13 mmol/L (10-20); BUN (Urea Nitrogen) 13 mg/dL (8.4-25.7); Calc. Creatinine Clearance 198 mL/min (70-130); Carbon Dioxide 25 mmol/L (23-31); Chloride 102 mmol/L (98-107); Estimated GFR 100; Glucose 104 mg/dL (83-110); Potassium 4.2 mmol/L (3.5-5.1); Sodium 136 mmol/L (136-145)
[2023-05-30] MEDS: Gabapentin 300 MG CAP PO SCH ×3 (09:47→20:45)
[2023-05-30] MEDS: Famotidine 20 MG TAB PO SCH ×2 (09:48→20:45)
[2023-05-30] MEDS: Morphine 4 MG/ML VIAL SLOW IVP PRN (13:12)
[2023-05-30] MEDS: Saccharomyces boulardii 250 MG CAP PO SCH (14:33)
[2023-05-30] MEDS: Cyanocobalamin (Vitamin B-12) 1,000 MCG TAB PO SCH (20:46)
[2023-05-30] MEDS: Multivit, Therapeutic 1 TAB PO SCH (20:46)
[2023-05-30] MEDS: Thiamine 100 MG TAB PO SCH (20:46)
[2023-05-30] MEDS: Folic Acid 1 MG TAB PO SCH (20:46)
[2023-05-31] MEDS: VANCOMYCIN 1.25 GM/250 ML BAG 1.25 GM in Premix Bag 1 BAG IVPB SCH ×2 (00:25→13:17)
[2023-05-31] MEDS: HYDROcodone/Acetaminophen 10/325 mg Tablet PO PRN ×4 (03:44→21:41)
[2023-05-31 04:22] LABS: #Eosinphils 0.1 10x3/uL (0.0-0.5); #Monocytes 0.6 10x3/uL (0.0-1.1); #Neutrophils 4.2 10x3/uL (1.5-8.4); %Basophils 0.7 % (0.0-2.0); %Eosinophils 1.9 % (0.0-6.0); %Lymphocytes 16.7 % (18.0-47.0); %Monocytes 9.5 % (0.0-10.0); %Neutrophils 70.7 % (40.0-75.0); Hematocrit 32.3 % (38.8-50.0); Hemoglobin 10.3 g/dL (13.5-17.5); Mean Corpuscular HGB CONC 31.9 g/dL (32.0-36.0); Mean Corpuscular Hemoglobin 28.7 pg (27.0-33.0); Mean Platelet Volume 9.5 fl (7.4-10.4); Platelet Count 211 10x3/uL (150-450); RBC Distribution Width 17.3 % (11.5-14.5); Red Blood Cell (RBC) Count 3.59 10x6/uL (4.32-5.72); White Blood Cell (WBC) Count 5.9 10x3/uL (3.5-10.5)
[2023-05-31 04:31] LABS: Anion Gap 13 mmol/L (10-20); BUN (Urea Nitrogen) 13 mg/dL (8.4-25.7); Calc. Creatinine Clearance 171 mL/min (70-130); Carbon Dioxide 25 mmol/L (23-31); Chloride 99 mmol/L (98-107); Estimated GFR 96; Glucose 99 mg/dL (83-110); Potassium 4.1 mmol/L (3.5-5.1); Sodium 133 mmol/L (136-145)
[2023-05-31] MEDS: Famotidine 20 MG TAB PO SCH ×2 (10:02→21:42)
[2023-05-31] MEDS: Gabapentin 300 MG CAP PO SCH ×3 (10:04→21:42)
[2023-05-31] MEDS: Cefepime 2 GM in Sodium Chloride 0.9% 100 ML IVPB SCH (13:17)
[2023-05-31] MEDS: Saccharomyces boulardii 250 MG CAP PO SCH (15:27)
[2023-05-31] MEDS: Thiamine 100 MG TAB PO SCH (21:40)
[2023-05-31] MEDS: Multivit, Therapeutic 1 TAB PO SCH (21:40)
[2023-05-31] MEDS: Cyanocobalamin (Vitamin B-12) 1,000 MCG TAB PO SCH (21:41)
[2023-05-31] MEDS: Folic Acid 1 MG TAB PO SCH (21:41)
[2023-06-01] MEDS: Cefepime 2 GM in Sodium Chloride 0.9% 100 ML IVPB SCH ×3 (00:15→23:48)
[2023-06-01] MEDS: VANCOMYCIN 1.25 GM/250 ML BAG 1.25 GM in Premix Bag 1 BAG IVPB SCH ×2 (01:17→14:28)
[2023-06-01 03:45] LABS: #Basophils 0.1 10x3/uL (0.0-0.2); #Eosinphils 0.1 10x3/uL (0.0-0.5); #Monocytes 0.4 10x3/uL (0.0-1.1); #Neutrophils 3.4 10x3/uL (1.5-8.4); %Eosinophils 2.2 % (0.0-6.0); %Lymphocytes 19.2 % (18.0-47.0); %Monocytes 8.4 % (0.0-10.0); %Neutrophils 68.6 % (40.0-75.0); Hematocrit 32.6 % (38.8-50.0); Hemoglobin 10.3 g/dL (13.5-17.5); Mean Corpuscular HGB CONC 31.6 g/dL (32.0-36.0); Mean Corpuscular Hemoglobin 28.6 pg (27.0-33.0); Mean Corpuscular Volume 90.6 fl (81.2-95.1); Mean Platelet Volume 9.3 fl (7.4-10.4); Platelet Count 206 10x3/uL (150-450); RBC Distribution Width 17.7 % (11.5-14.5); White Blood Cell (WBC) Count 4.9 10x3/uL (3.5-10.5)
[2023-06-01 03:47] LABS: Anion Gap 12 mmol/L (10-20); BUN (Urea Nitrogen) 12 mg/dL (8.4-25.7); Calc. Creatinine Clearance 201 mL/min (70-130); Calcium 7.9 mg/dL (7.8-10.44); Carbon Dioxide 26 mmol/L (23-31); Chloride 101 mmol/L (98-107); Estimated GFR 100; Glucose 107 mg/dL (83-110); Potassium 3.9 mmol/L (3.5-5.1); Sodium 135 mmol/L (136-145)
[2023-06-01] MEDS: HYDROcodone/Acetaminophen 10/325 mg Tablet PO PRN ×4 (03:55→20:39)
[2023-06-01] MEDS: Gabapentin 300 MG CAP PO SCH (08:32)
[2023-06-01] MEDS: Famotidine 20 MG TAB PO SCH ×2 (08:33→20:38)
[2023-06-01] MEDS ORDERED: HYDROcodone/Acetaminophen 10/325 mg Tablet PO SCH (11:00)
[2023-06-01] MEDS: Morphine 4 MG/ML VIAL SLOW IVP PRN (11:25)
[2023-06-01 11:40] LABS: Vancomycin, Trough 15.4 ug/mL
[2023-06-01] MEDS: Gabapentin 400 MG CAP PO SCH ×2 (14:28→20:36)
[2023-06-01] MEDS: Saccharomyces boulardii 250 MG CAP PO SCH (14:29)
[2023-06-01] MEDS: Cyanocobalamin (Vitamin B-12) 1,000 MCG TAB PO SCH (20:35)
[2023-06-01] MEDS: Folic Acid 1 MG TAB PO SCH (20:36)
[2023-06-01] MEDS: Multivit, Therapeutic 1 TAB PO SCH (20:37)
[2023-06-01] MEDS: Thiamine 100 MG TAB PO SCH (20:37)
[2023-06-02] MEDS: VANCOMYCIN 1.25 GM/250 ML BAG 1.25 GM in Premix Bag 1 BAG IVPB SCH ×2 (00:39→12:41)
[2023-06-02 03:42] LABS: #Eosinphils 0.1 10x3/uL (0.0-0.5); #Monocytes 0.5 10x3/uL (0.0-1.1); #Neutrophils 3.9 10x3/uL (1.5-8.4); %Basophils 0.5 % (0.0-2.0); %Lymphocytes 16.8 % (18.0-47.0); %Monocytes 9.3 % (0.0-10.0); Hemoglobin 10.2 g/dL (13.5-17.5); Mean Corpuscular HGB CONC 31.9 g/dL (32.0-36.0); Mean Corpuscular Hemoglobin 28.9 pg (27.0-33.0); Mean Corpuscular Volume 90.7 fl (81.2-95.1); Mean Platelet Volume 9.2 fl (7.4-10.4); Platelet Count 219 10x3/uL (150-450); Red Blood Cell (RBC) Count 3.53 10x6/uL (4.32-5.72); White Blood Cell (WBC) Count 5.5 10x3/uL (3.5-10.5)
[2023-06-02 03:43] LABS: Anion Gap 11 mmol/L (10-20); BUN (Urea Nitrogen) 11 mg/dL (8.4-25.7); Calc. Creatinine Clearance 189 mL/min (70-130); Carbon Dioxide 27 mmol/L (23-31); Chloride 101 mmol/L (98-107); Estimated GFR 99; Glucose 99 mg/dL (83-110); Potassium 4.2 mmol/L (3.5-5.1); Sodium 135 mmol/L (136-145)
[2023-06-02] MEDS: HYDROcodone/Acetaminophen 10/325 mg Tablet PO PRN ×3 (04:09→14:41)
[2023-06-02] MEDS: Famotidine 20 MG TAB PO SCH (08:39)
[2023-06-02] MEDS: Gabapentin 400 MG CAP PO SCH ×2 (08:39→14:40)
[2023-06-02] MEDS: Cefepime 2 GM in Sodium Chloride 0.9% 100 ML IVPB SCH (11:35)
[2023-06-02 12:39] VITALS: BP 140/72; TEMP 98.4
[2023-06-02] MEDS: Saccharomyces boulardii 250 MG CAP PO SCH (14:40)
== END 2023-06-02 15:54 | DRG 603 ==
LOC: CSHERS 10:42 → CSHERHOLD 17:07 → CSHTELE 05-21 00:55
PROVIDERS: ADMIT Internal Medicine; ATTEND Internal Medicine
PROC: HZ2ZZZZ Detoxification Services for Substance Abuse Treatment (ICD-10-PCS; principal; 2023-05-21)
DX: L03.115 Cellulitis of right lower limb (principal); E87.1 Hypo-osmolality and hyponatremia; N17.9 Acute kidney failure, unspecified; Z68.41 Body mass index [BMI] 40.0-44.9, adult; I87.2 Venous insufficiency (chronic) (peripheral); Z66 Do not resuscitate; L03.116 Cellulitis of left lower limb; S81.802A Unspecified open wound, left lower leg, initial encounter; S81.801A Unspecified open wound, right lower leg, initial encounter; E66.01 Morbid (severe) obesity due to excess calories; F10.20 Alcohol dependence, uncomplicated; R53.81 Other malaise; D63.8 Anemia in other chronic diseases classified elsewhere; I44.1 Atrioventricular block, second degree; I35.0 Nonrheumatic aortic (valve) stenosis; I89.0 Lymphedema, not elsewhere classified; Z79.899 Other long term (current) drug therapy; Z90.49 Acquired absence of other specified parts of digestive tract; Z98.49 Cataract extraction status, unspecified eye; Z87.891 Personal history of nicotine dependence
CPT/HCPCS: 36415; 36416; 71045; 80048; 80053; 80069; 80076; 80202; 82550; 82565; 83605; 83690; 83735; 83880; 83930; 84520; 85025; 85027; 86140; 87040; 87070; 87205; 93005; 93010; 93306; 93923; 93970; 94760; 96365; 96375; 97139; J0692; J0696; J1650; J1885; J2270; J2272; J3370; J3490; J7050

== ENCOUNTER 2023-06-05 14:10 | Inpatient (IN) | payer MEDICARE ==
[~2023-06-05 14:10] MED LIST: Iopamidol 370 76% 100 ML VIAL ONE
[2023-06-05 14:40] LABS: #Eosinphils 0.1 10x3/uL (0.0-0.5); #Monocytes 0.2 10x3/uL (0.0-1.1); #Neutrophils 2.6 10x3/uL (1.5-8.4); %Basophils 0.6 % (0.0-2.0); %Eosinophils 2.7 % (0.0-6.0); %Lymphocytes 10.6 % (18.0-47.0); %Monocytes 7.3 % (0.0-10.0); %Neutrophils 78.5 % (40.0-75.0); Hematocrit 36.1 % (38.8-50.0); Hemoglobin 11.5 g/dL (13.5-17.5); Mean Corpuscular HGB CONC 31.9 g/dL (32.0-36.0); Mean Corpuscular Hemoglobin 28.5 pg (27.0-33.0); Mean Corpuscular Volume 89.4 fl (81.2-95.1); Platelet Count 215 10x3/uL (150-450); RBC Distribution Width 17.6 % (11.5-14.5); Red Blood Cell (RBC) Count 4.04 10x6/uL (4.32-5.72); White Blood Cell (WBC) Count 3.3 10x3/uL (3.5-10.5)
[2023-06-05 14:48] LABS: PTT 29.3 sec (22.0-33.0); Prothrombin Time 10.4 sec (9.5-12.1)
[2023-06-05 14:51] LABS: Troponin I 0.021 ng/mL (< 0.028)
[2023-06-05 14:52] LABS: ALT (SGPT) 21 U/L (8-55); AST (SGOT) 35 U/L (5-34); Albumin 3.4 g/dL (3.4-4.8); Alkaline Phosphatase 199 U/L (40-110); Anion Gap 13 mmol/L (10-20); BUN (Urea Nitrogen) 8 mg/dL (8.4-25.7); Bilirubin, Total 0.9 mg/dL (0.2-1.2); Calc. Creatinine Clearance 0 mL/min (70-130); Calcium 7.9 mg/dL (7.8-10.44); Carbon Dioxide 30 mmol/L (23-31); Chloride 101 mmol/L (98-107); Estimated GFR 98; Globulin 2.1 g/dL (2.4-3.5); Glucose 129 mg/dL (83-110); Magnesium 1.6 mg/dL (1.6-2.6); Potassium 4.4 mmol/L (3.5-5.1); Protein, Total 5.5 g/dL (5.8-8.1); Sodium 140 mmol/L (136-145)
[2023-06-05 15:13] LABS: Actual Bicarbonate (HCO3v) 31.1 mEq/L (22-28); Base Excess 5.7 mEq/L (-2 - +2); Calcium, Ionized (venous) 1.03 mmol/L (1.16-1.32); Chloride (VBG) 99 mmol/L (98-106); Hematocrit-VBG 34 % (42.0-52.0); Hemoglobin (Hb) 11.7 g/dL (12.6-17.4); Puncture Site Other Site; RapidComm Collect By CBN; Sodium 135.3 mmol/L (133-146); pH (venous) 7.423 (7.32-7.43)
[2023-06-05] MEDS ORDERED: Furosemide 100 MG/10 ML VIAL ONE (15:18)
[2023-06-05 15:20] LABS: SARS-CoV-2 NAA Rapid Test Not Detected (NotDetected)
[2023-06-05] MEDS ORDERED: Apixaban 5 MG TAB ONE (15:48)
[2023-06-05] MEDS ORDERED: Acetaminophen 325 MG TAB PO PRN (16:47)
[2023-06-05] MEDS ORDERED: Senokot S 8.6-50 MG TAB PO PRN (16:47)
[2023-06-05] MEDS ORDERED: Acetaminophen 650 MG Suppository PR PRN (16:47)
[2023-06-05 18:24] VITALS: BMI 52.8
[2023-06-05] MEDS: HYDROcodone/Acetaminophen 10/325 mg Tablet PO PRN (19:44)
[2023-06-05] MEDS ORDERED: Apixaban 5 MG TAB PO SCH (20:00)
[2023-06-05] MEDS: Gabapentin 400 MG CAP PO SCH (20:27)
[2023-06-05] MEDS: Folic Acid 1 MG TAB PO SCH (20:30)
[2023-06-05] MEDS: Thiamine 100 MG TAB PO SCH (20:31)
[2023-06-05] MEDS: Ciprofloxacin 500 MG TAB PO SCH (20:32)
[2023-06-05] MEDS: Linezolid 600 MG TAB PO SCH (20:32)
[2023-06-05] MEDS ORDERED: Morphine 4 MG/ML VIAL SLOW IVP SCH (23:30)
[2023-06-06] MEDS: HYDROcodone/Acetaminophen 10/325 mg Tablet PO PRN ×4 (02:15→23:04)
[2023-06-06 05:30] LABS: #Eosinphils 0.1 10x3/uL (0.0-0.5); #Monocytes 0.4 10x3/uL (0.0-1.1); #Neutrophils 2.4 10x3/uL (1.5-8.4); %Basophils 0.6 % (0.0-2.0); %Lymphocytes 15.9 % (18.0-47.0); %Monocytes 11.2 % (0.0-10.0); Hematocrit 33.8 % (38.8-50.0); Hemoglobin 10.5 g/dL (13.5-17.5); Mean Corpuscular HGB CONC 31.1 g/dL (32.0-36.0); Mean Corpuscular Hemoglobin 28.1 pg (27.0-33.0); Mean Corpuscular Volume 90.4 fl (81.2-95.1); Mean Platelet Volume 8.7 fl (7.4-10.4); Platelet Count 188 10x3/uL (150-450); RBC Distribution Width 17.2 % (11.5-14.5); Red Blood Cell (RBC) Count 3.74 10x6/uL (4.32-5.72); White Blood Cell (WBC) Count 3.5 10x3/uL (3.5-10.5)
[2023-06-06 05:45] LABS: Anion Gap 14 mmol/L (10-20); BUN (Urea Nitrogen) 7 mg/dL (8.4-25.7); Calc. Creatinine Clearance 222 mL/min (70-130); Carbon Dioxide 32 mmol/L (23-31); Chloride 98 mmol/L (98-107); Estimated GFR 97; Glucose 98 mg/dL (83-110); Potassium 3.9 mmol/L (3.5-5.1); Sodium 140 mmol/L (136-145)
[2023-06-06] MEDS: Apixaban 5 MG TAB PO SCH ×2 (08:41→21:09)
[2023-06-06] MEDS: Gabapentin 400 MG CAP PO SCH ×3 (08:41→21:08)
[2023-06-06] MEDS: Ciprofloxacin 500 MG TAB PO SCH (08:42)
[2023-06-06] MEDS: Linezolid 600 MG TAB PO SCH ×2 (10:17→21:09)
[2023-06-06] MEDS: cefTRIAXone\\ROCEPHIN 2 GM in Sodium Chloride 0.9% 100 ML IVPB SCH (11:46)
[2023-06-06] MEDS ORDERED: Iopamidol 300 61% 100 ML VIAL FS ONE (14:20)
[2023-06-06] MEDS: Folic Acid 1 MG TAB PO SCH (21:09)
[2023-06-06] MEDS: Thiamine 100 MG TAB PO SCH (21:10)
[2023-06-07 05:52] LABS: Anion Gap 12 mmol/L (10-20); BUN (Urea Nitrogen) 8 mg/dL (8.4-25.7); Calc. Creatinine Clearance 229 mL/min (70-130); Calcium 7.9 mg/dL (7.8-10.44); Carbon Dioxide 31 mmol/L (23-31); Chloride 96 mmol/L (98-107); Estimated GFR 98; Glucose 99 mg/dL (83-110); Potassium 3.7 mmol/L (3.5-5.1); Sodium 135 mmol/L (136-145)
[2023-06-07 06:20] LABS: #Eosinphils 0.1 10x3/uL (0.0-0.5); #Monocytes 0.3 10x3/uL (0.0-1.1); #Neutrophils 1.6 10x3/uL (1.5-8.4); %Basophils 0.8 % (0.0-2.0); %Eosinophils 2.3 % (0.0-6.0); %Lymphocytes 24.4 % (18.0-47.0); %Monocytes 11.3 % (0.0-10.0); %Neutrophils 60.4 % (40.0-75.0); Hematocrit 33.3 % (38.8-50.0); Hemoglobin 10.5 g/dL (13.5-17.5); Mean Corpuscular HGB CONC 31.5 g/dL (32.0-36.0); Mean Corpuscular Volume 88.8 fl (81.2-95.1); Mean Platelet Volume 8.9 fl (7.4-10.4); Platelet Count 194 10x3/uL (150-450); RBC Distribution Width 17.4 % (11.5-14.5); Red Blood Cell (RBC) Count 3.75 10x6/uL (4.32-5.72); White Blood Cell (WBC) Count 2.7 10x3/uL (3.5-10.5)
[2023-06-07] MEDS: Linezolid 600 MG TAB PO SCH ×2 (09:09→21:21)
[2023-06-07] MEDS: Apixaban 5 MG TAB PO SCH ×2 (09:10→21:22)
[2023-06-07] MEDS: Gabapentin 400 MG CAP PO SCH ×3 (09:10→21:21)
[2023-06-07] MEDS: HYDROcodone/Acetaminophen 10/325 mg Tablet PO PRN ×3 (09:24→21:45)
[2023-06-07] MEDS: cefTRIAXone\\ROCEPHIN 2 GM in Sodium Chloride 0.9% 100 ML IVPB SCH (12:00)
[2023-06-07] MEDS: Thiamine 100 MG TAB PO SCH (21:21)
[2023-06-07] MEDS: Folic Acid 1 MG TAB PO SCH (21:22)
[2023-06-07] MEDS: Miconazole Nitrate Powder 2% 45 gm TOP SCH (21:24)
[2023-06-08] MEDS: HYDROcodone/Acetaminophen 10/325 mg Tablet PO PRN ×2 (02:57→10:30)
[2023-06-08 05:23] LABS: #Eosinphils 0.1 10x3/uL (0.0-0.5); #Monocytes 0.4 10x3/uL (0.0-1.1); #Neutrophils 2.1 10x3/uL (1.5-8.4); %Basophils 1.2 % (0.0-2.0); %Eosinophils 1.8 % (0.0-6.0); %Lymphocytes 23.4 % (18.0-47.0); %Monocytes 10.8 % (0.0-10.0); %Neutrophils 62.2 % (40.0-75.0); Hematocrit 34.9 % (38.8-50.0); Mean Corpuscular HGB CONC 31.5 g/dL (32.0-36.0); Mean Corpuscular Hemoglobin 27.8 pg (27.0-33.0); Mean Corpuscular Volume 88.4 fl (81.2-95.1); Mean Platelet Volume 8.6 fl (7.4-10.4); Platelet Count 180 10x3/uL (150-450); RBC Distribution Width 17.2 % (11.5-14.5); Red Blood Cell (RBC) Count 3.95 10x6/uL (4.32-5.72); White Blood Cell (WBC) Count 3.4 10x3/uL (3.5-10.5)
[2023-06-08 05:42] LABS: Anion Gap 13 mmol/L (10-20); BUN (Urea Nitrogen) 8 mg/dL (8.4-25.7); Calc. Creatinine Clearance 210 mL/min (70-130); Calcium 8.1 mg/dL (7.8-10.44); Carbon Dioxide 32 mmol/L (23-31); Chloride 96 mmol/L (98-107); Estimated GFR 96; Glucose 99 mg/dL (83-110); Potassium 3.8 mmol/L (3.5-5.1); Sodium 137 mmol/L (136-145)
[2023-06-08] MEDS: Gabapentin 400 MG CAP PO SCH (08:29)
[2023-06-08] MEDS: Apixaban 5 MG TAB PO SCH (08:30)
[2023-06-08] MEDS: Linezolid 600 MG TAB PO SCH (08:30)
[2023-06-08] MEDS: Miconazole Nitrate Powder 2% 45 gm TOP SCH (08:31)
[2023-06-08] MEDS: cefTRIAXone\\ROCEPHIN 2 GM in Sodium Chloride 0.9% 100 ML IVPB SCH (10:31)
[2023-06-08 15:22] VITALS: BP 137/68; TEMP 98
[2023-06-12] MEDS ORDERED: Apixaban 5 MG TAB PO SCH (21:00)
== END 2023-06-08 14:30 | DRG 176 ==
LOC: CSHERS 14:10 → CSHTELE 15:44 → OBSVTOIN 06-06 11:05
PROVIDERS: ADMIT Hospitalist; ATTEND Hospitalist
DX: I26.99 Other pulmonary embolism without acute cor pulmonale (principal); J90 Pleural effusion, not elsewhere classified; E66.2 Morbid (severe) obesity with alveolar hypoventilation; J98.11 Atelectasis; L03.116 Cellulitis of left lower limb; L03.115 Cellulitis of right lower limb; Z68.42 Body mass index [BMI] 45.0-49.9, adult; I44.1 Atrioventricular block, second degree; Z66 Do not resuscitate; F10.90 Alcohol use, unspecified, uncomplicated; Z20.822 Contact with and (suspected) exposure to COVID-19; R16.1 Splenomegaly, not elsewhere classified; I50.9 Heart failure, unspecified; K21.9 Gastro-esophageal reflux disease without esophagitis; S81.802A Unspecified open wound, left lower leg, initial encounter; S81.801A Unspecified open wound, right lower leg, initial encounter; D63.8 Anemia in other chronic diseases classified elsewhere; B35.6 Tinea cruris; Z79.899 Other long term (current) drug therapy; Z90.49 Acquired absence of other specified parts of digestive tract; Z98.49 Cataract extraction status, unspecified eye; Z87.891 Personal history of nicotine dependence; I45.81 Long QT syndrome; R53.81 Other malaise
CPT/HCPCS: 36415; 71275; 80048; 80053; 82805; 83735; 83880; 84484; 85025; 85610; 85730; 93005; 93010; 93970; 94660; 94760; 96374; 96375; 97139; G0378; J0696; J1940; J2270; J3490; Q9967

== ENCOUNTER 2023-09-14 09:46 | Emergency (ER) | payer MEDICARE, SELFPAY ==
[2023-09-14 10:24] LABS: #Monocytes 0.4 10x3/uL (0.0-1.1); %Basophils 0.4 % (0.0-2.0); %Eosinophils 0.4 % (0.0-6.0); %Lymphocytes 9.7 % (18.0-47.0); %Monocytes 7.2 % (0.0-10.0); %Neutrophils 81.9 % (40.0-75.0); Hematocrit 33.9 % (38.8-50.0); Hemoglobin 10.9 g/dL (13.5-17.5); Mean Corpuscular HGB CONC 32.2 g/dL (32.0-36.0); Mean Corpuscular Hemoglobin 27.3 pg (27.0-33.0); Mean Corpuscular Volume 84.8 fl (81.2-95.1); Mean Platelet Volume 9.8 fl (7.4-10.4); Platelet Count 157 10x3/uL (150-450); RBC Distribution Width 19.4 % (11.5-14.5); White Blood Cell (WBC) Count 4.9 10x3/uL (3.5-10.5)
[2023-09-14 10:41] LABS: PTT 29.1 sec (22.0-33.0); Prothrombin Time 10.4 sec (9.5-12.1)
[2023-09-14 10:46] LABS: ALT (SGPT) 15 U/L (8-55); AST (SGOT) 26 U/L (5-34); Albumin 3.4 g/dL (3.4-4.8); Alkaline Phosphatase 164 U/L (40-110); Anion Gap 16 mmol/L (10-20); BUN (Urea Nitrogen) 11 mg/dL (8.4-25.7); Bilirubin, Total 1.1 mg/dL (0.2-1.2); Calc. Creatinine Clearance 0 mL/min (70-130); Calcium 8.1 mg/dL (7.8-10.44); Carbon Dioxide 23 mmol/L (23-31); Chloride 102 mmol/L (98-107); Estimated GFR 98; Globulin 2.4 g/dL (2.4-3.5); Glucose 92 mg/dL (83-110); Potassium 4.1 mmol/L (3.5-5.1); Protein, Total 5.8 g/dL (5.8-8.1); Sodium 137 mmol/L (136-145)
== END 2023-09-14 13:39 | disposition home or self-care (01) ==
LOC: CSHERS 09:46
DX: L03.116 Cellulitis of left lower limb (principal); L03.115 Cellulitis of right lower limb
CPT/HCPCS: 80053; 85025; 85610; 85730; 93005; 93010; 93970

== ENCOUNTER 2023-10-12 00:12 | Inpatient (IN) | payer MEDICARE, SELFPAY ==
[2023-10-12 01:46] LABS: INR-International Normal Ratio 1.1; PTT 34.6 sec (22.0-33.0); Prothrombin Time 11.4 sec (9.5-12.1)
[2023-10-12 01:49] LABS: ALT (SGPT) 11 U/L (8-55); AST (SGOT) 17 U/L (5-34); Albumin 3.2 g/dL (3.4-4.8); Alkaline Phosphatase 124 U/L (40-110); Anion Gap 18 mmol/L (10-20); BUN (Urea Nitrogen) 53 mg/dL (8.4-25.7); Bilirubin, Total 1.8 mg/dL (0.2-1.2); Calc. Creatinine Clearance 0 mL/min (70-130); Calcium 8.4 mg/dL (7.8-10.44); Carbon Dioxide 22 mmol/L (23-31); Chloride 89 mmol/L (98-107); Estimated GFR 20; Glucose 106 mg/dL (83-110); Magnesium 2.1 mg/dL (1.6-2.6); Protein, Total 6.2 g/dL (5.8-8.1); Sodium 123 mmol/L (136-145)
[2023-10-12 01:56] LABS: Troponin I Less than 0.010 ng/mL (< 0.028)
[2023-10-12 01:59] LABS: Critical Call Chemistry NUR.JPM@0157; Potassium 6.2 mmol/L (3.5-5.1)
[2023-10-12] MEDS ORDERED: Furosemide 40 MG (4 mL) VIAL ONE (02:12)
[2023-10-12] MEDS ORDERED: Calcium Chloride 1 GM/10 ML Abboject SYRINGE ONE (02:12)
[2023-10-12] MEDS ORDERED: Sodium Bicarb 50 MEQ/50 ML VIAL ONE (02:13)
[2023-10-12] MEDS ORDERED: Insulin Regular 300 UNITS/3 ML VIAL ONE (02:13)
[2023-10-12] MEDS ORDERED: Dextrose 50% Abboject 50 ML SYRINGE ONE ×2 (02:13→02:21)
[2023-10-12] MEDS ORDERED: Albuterol 2.5 MG (3 mL) NEB ONE (02:24)
[2023-10-12 02:44] LABS: Hematocrit 29.3 % (38.8-50.0); Hemoglobin 9.4 g/dL (13.5-17.5); Mean Corpuscular HGB CONC 32.1 g/dL (32.0-36.0); Mean Corpuscular Hemoglobin 27.6 pg (27.0-33.0); Mean Corpuscular Volume 85.9 fl (81.2-95.1); Mean Platelet Volume 9.5 fl (7.4-10.4); Platelet Count 136 10x3/uL (150-450); RBC Distribution Width 20.9 % (11.5-14.5); Red Blood Cell (RBC) Count 3.41 10x6/uL (4.32-5.72); White Blood Cell (WBC) Count 9.4 10x3/uL (3.5-10.5)
[2023-10-12 02:51] LABS: Band 15 % (5-11); Eosinophils 1 % (0-10); Lymphocytes 3 % (21-51); Metamyelocyte 7 % (0-0); Monocytes 3 % (0-10)
[2023-10-12 02:54] LABS: Anisocytosis MODERATE=16-30 cells (100X) (0-5/hpf)
[2023-10-12 02:55] LABS: Crenated RBC SLIGHT = 1-5 cells (100X) (None Seen); Poikilocytosis SLIGHT = 6-15 cells (100X) (0-5/hpf)
[2023-10-12 02:56] LABS: Macrocytosis SLIGHT = 6-15 cells (100X) (0-5/hpf); Microcytosis MODERATE=15-30 cells (100X) (0-5/hpf); Platelet Adequacy Comment Appears Adequate
[2023-10-12 02:59] LABS: MDiff Complete? YES
[2023-10-12] MEDS ORDERED: fentaNYL 50 mcg/mL 1 mL Vial ONE (03:19)
[2023-10-12] MEDS ORDERED: Glucagon 1 MG/ML KIT IM PRN (03:34)
[2023-10-12] MEDS ORDERED: Dextrose 50% Abboject 50 ML SYRINGE SLOW IVP PRN (03:34)
[2023-10-12] MEDS ORDERED: Dextrose 5% in Water 1,000 ML IV PRN (03:34)
[2023-10-12] MEDS ORDERED: diphenhydrAMINE 25 MG CAP PO PRN (03:36)
[2023-10-12] MEDS ORDERED: Bisacodyl 5 MG TAB PO PRN (03:36)
[2023-10-12] MEDS ORDERED: Moisturizing Cream (Eucerin) 113 GM JAR TOP PRN (03:36)
[2023-10-12] MEDS ORDERED: Artificial Tear Sol 15 ML BOT EA EYE PRN (03:36)
[2023-10-12] MEDS ORDERED: Sodium Chloride 0.65% Nasal 44 ML BOT EA NARE PRN (03:36)
[2023-10-12] MEDS ORDERED: Ondansetron ODT 4 MG TAB PO PRN ×2 (03:36→03:44)
[2023-10-12] MEDS ORDERED: Communication Order-Pharmacy FS PRN (03:36)
[2023-10-12] MEDS ORDERED: Acetaminophen 650 MG Suppository PR PRN (03:36)
[2023-10-12] MEDS ORDERED: Benzonatate 100 MG CAP PO PRN (03:36)
[2023-10-12] MEDS ORDERED: Acetaminophen 325 MG TAB PO PRN (03:36)
[2023-10-12] MEDS ORDERED: Loratadine 10 MG TAB PO PRN (03:36)
[2023-10-12] MEDS ORDERED: Senokot S 8.6-50 MG TAB PO PRN (03:36)
[2023-10-12] MEDS ORDERED: Labetalol HCl 100 MG/20 ML VIAL SLOW IVP PRN (03:36)
[2023-10-12] MEDS ORDERED: HumaLOG 300 UNITS/3 ML VIAL SC PRN ×2 (03:36)
[2023-10-12] MEDS ORDERED: hydrALAZINE 20 MG/ML VIAL SLOW IVP PRN (03:36)
[2023-10-12] MEDS ORDERED: GUAIFENESIN SF SOLN 200 MG/10 ML UDCUP PO PRN (03:36)
[2023-10-12] MEDS ORDERED: HYDROcodone/Acetaminophen 5/325 mg Tablet PO PRN (03:36)
[2023-10-12] MEDS ORDERED: Lorazepam 2 MG/ML VIAL IM PRN (03:44)
[2023-10-12] MEDS ORDERED: Lorazepam 1 MG TAB PO PRN (03:44)
[2023-10-12] MEDS ORDERED: Electrolyte Replacement Protocol 1 EACH FS SCH (03:45)
[2023-10-12] MEDS ORDERED: Vancomycin 1 GM in Sodium Chloride 0.9% 500 ML IVPB SCH (03:45)
[2023-10-12] MEDS ORDERED: Lactated Ringer's 1,000 ML IV SCH (04:00)
[2023-10-12] MEDS ORDERED: Thiamine HCl 200 MG/2 ML VIAL SLOW IVP SCH (04:00)
[2023-10-12 04:10] LABS: Actual Bicarbonate (HCO3a) 19.2 mEq/L (22-28); Analyzer IN Cardio CS ER; Base Excess (BEa) -6.4 mEq/L (-2.0 to +3.0); CO2 Tension 38.8 mmHg (35.0-45.0); Calcium, Ionized (arterial) 1.09 mmol/L (1.12-1.30); Critical Notified By: Udy, RRT; Hematocrit-ABG 28 % (42.0-52.0); Hemoglobin (Hb) 9.6 g/dL (14.0-18.0); O2 Tension (PaO2), arterial 94.1 mmHg (> 70.0); Potassium - ABG Lab 4.94 mmol/L (3.70-5.30); Puncture Site RRA; RapidComm Collect By Udy, RRT; pH, Arterial 7.313 (7.35-7.45)
[2023-10-12] MEDS ORDERED: Boostrix 0.5 ML (Tdap) VIAL (>/=7 yrs of age) ONE (04:14)
[2023-10-12 04:30] LABS: Alcohol Less than 10.0 mg/dL (Less than 10); Phosphorus 6.3 mg/dL (2.3-4.7)
[2023-10-12] MEDS ORDERED: Vancomycin Dose by Levels Sliding Scale (Wt > 99) FS SCH (04:30)
[2023-10-12] MEDS ORDERED: VANCOMYCIN 2 GRAM/400 ML BAG 2 GM in Premix 1 BAG IVPB SCH (04:30)
[2023-10-12] MEDS ORDERED: CEFAZOLIN 2 GM VIAL ONE (04:43)
[2023-10-12] MEDS ORDERED: Thiamine HCl 200 MG/2 ML VIAL ONE (04:53)
[2023-10-12 05:51] LABS: Anion Gap 19 mmol/L (10-20); BUN (Urea Nitrogen) 55 mg/dL (8.4-25.7); Calc. Creatinine Clearance 0 mL/min (70-130); Calcium 8.4 mg/dL (7.8-10.44); Carbon Dioxide 19 mmol/L (23-31); Chloride 91 mmol/L (98-107); Estimated GFR 21; Glucose 119 mg/dL (83-110); Potassium 5.3 mmol/L (3.5-5.1); Sodium 124 mmol/L (136-145)
[2023-10-12] MEDS ORDERED: Vancomycin Dialysis Sliding Scale (Wt > 99) FS SCH (07:45)
[2023-10-12] MEDS ORDERED: LOKELMA 10 GM PACKET PO SCH (07:45)
[2023-10-12] MEDS ORDERED: Folic Acid 1 MG TAB ONE (07:47)
[2023-10-12] MEDS ORDERED: Apixaban 5 MG TAB ONE (07:48)
[2023-10-12] MEDS ORDERED: Cefepime 1 GM VIAL ONE (07:48)
[2023-10-12] MEDS ORDERED: Famotidine 20 MG TAB ONE (07:57)
[2023-10-12] MEDS ORDERED: Morphine 4 MG/ML VIAL ONE ×2 (08:15→13:47)
[2023-10-12] MEDS: Morphine 4 MG/ML VIAL SLOW IVP PRN ×2 (08:28→13:51)
[2023-10-12] MEDS ORDERED: Sodium Bicarbonate Tab 325 MG TAB PO SCH (09:00)
[2023-10-12] MEDS ORDERED: Cefepime 1 GM in Sodium Chloride 0.9% 100 ML IVPB SCH (09:00)
[2023-10-12] MEDS ORDERED: Famotidine/PF 20 mg/2ml Vial SLOW IVP SCH (09:00)
[2023-10-12] MEDS ORDERED: Multivit, Therapeutic 1 TAB PO SCH (09:00)
[2023-10-12] MEDS ORDERED: Folic Acid 1 MG TAB PO SCH (09:00)
[2023-10-12] MEDS ORDERED: Apixaban 5 MG TAB PO SCH (09:00)
[2023-10-12] MEDS ORDERED: Vancomycin 1 GM in Sodium Chloride 0.9% 250 ML 300 ML IVPB SCH (09:00)
[2023-10-12] MEDS ORDERED: Famotidine 20 MG TAB PO SCH (09:00)
[2023-10-12] MEDS ORDERED: Sodium Chloride 0.9% 1,000 ML IV SCH (09:15)
[2023-10-12 09:55] LABS: Anion Gap 19 mmol/L (10-20); BUN (Urea Nitrogen) 57 mg/dL (8.4-25.7); Calc. Creatinine Clearance 0 mL/min (70-130); Calcium 8.2 mg/dL (7.8-10.44); Carbon Dioxide 19 mmol/L (23-31); Chloride 91 mmol/L (98-107); Estimated GFR 22; Glucose 126 mg/dL (83-110); Potassium 5.8 mmol/L (3.5-5.1); Sodium 123 mmol/L (136-145)
[2023-10-12] MEDS ORDERED: Albumin 25% 25 GM (100 mL) BOT IVPB SCH (12:00)
[2023-10-12 15:51] VITALS: BP 112/62
[2023-10-12] MEDS ORDERED: Apixaban 2.5 MG TAB PO SCH (21:00)
[2023-10-13] MEDS ORDERED: Lorazepam 1 MG TAB PO PRN (03:44)
[2023-10-14] MEDS ORDERED: Lorazepam 1 MG TAB PO PRN (03:44)
[2023-10-15] MEDS ORDERED: Lorazepam 0.5 MG TAB PO PRN (03:44)
[2023-10-15] MEDS ORDERED: Thiamine 100 MG TAB PO SCH (04:00)
== END 2023-10-12 17:40 | disposition short-term general hospital (02) | DRG 562 ==
LOC: CSHERS 00:12 → CSHERHOLD 03:49
PROVIDERS: ADMIT Family Medicine; ATTEND Internal Medicine
PROC: 4A033R1 Measurement of Arterial Saturation, Peripheral, Percutaneous Approach (ICD-10-PCS; principal; 2023-10-12)
PROC: 30233J1 Transfusion of Nonautologous Serum Albumin into Peripheral Vein, Percutaneous Approach (ICD-10-PCS; 2023-10-12)
DX: S42.302A Unspecified fracture of shaft of humerus, left arm, initial encounter for closed fracture (principal); A41.9 Sepsis, unspecified organism; R65.20 Severe sepsis without septic shock; N17.9 Acute kidney failure, unspecified; E87.1 Hypo-osmolality and hyponatremia; L03.116 Cellulitis of left lower limb; L03.115 Cellulitis of right lower limb; E66.01 Morbid (severe) obesity due to excess calories; I25.10 Atherosclerotic heart disease of native coronary artery without angina pectoris; E87.5 Hyperkalemia; S52.121A Displaced fracture of head of right radius, initial encounter for closed fracture; I48.91 Unspecified atrial fibrillation; W18.30XA Fall on same level, unspecified, initial encounter; F10.10 Alcohol abuse, uncomplicated; Z86.711 Personal history of pulmonary embolism; Z90.49 Acquired absence of other specified parts of digestive tract; Z98.49 Cataract extraction status, unspecified eye; Z79.01 Long term (current) use of anticoagulants; Z79.899 Other long term (current) drug therapy; Z86.718 Personal history of other venous thrombosis and embolism; Z82.49 Family history of ischemic heart disease and other diseases of the circulatory system
CPT/HCPCS: 36415; 36600; 70450; 71045; 71250; 72125; 72170; 74177; 76770; 80053; 80307; 82550; 82805; 83605; 83735; 83880; 84100; 84145; 84443; 84484; 85025; 85610; 85730; 86140; 87040; 90715; 93005; 93970; J0692; J1815; J1940; J2270; J3010; J3370; J3411; J3490; J7050; J7611; J7999; P9047